=== PATIENT | male | born 1995 | race African-American/Black ===

== ENCOUNTER 2018-08-06 21:55 | Emergency (ER) | payer OTHER ==
[~2018-08-06] VITALS: Ht 180.3 cm; Wt 70.5 kg
[2018-08-06] MEDS ORDERED: SODIUM CHLORIDE 0.9% 1,000 ML IV ONE (22:01)
[2018-08-06] MEDS ORDERED: ONDANSETRON 2MG/ML, 2ML ONE (22:09)
[2018-08-06] MEDS ORDERED: LORazepam 2 MG/ML, 1ML ONE (22:09)
--- NOTE | 2018-08-06 22:19 | NUR ---
PT BIB WITH VOMITING, CHILLS AND AGITATION. PT IS COOPERATIVE, FATHER WITH PT. PT IN HOSPITAL GOWN. IV ESTABLISHED BY [facility]. ORDERED MEDS AND FLUIDS INFUSING. PT ON CARDIAC AND VITALS MONITORS. LABS HAVE BEEN DRAWN. PT IS CALMING DOWN. PT PROVIDED WITH WARM BLANKET. WILL CONTINUE TO MONITOR. BILAT BEDRAILS UP.
[2018-08-06 22:25] LABS: ALANINE AMINOTRANSFERASE 27 U/L (12-78); ALBUMIN 4.3 g/dL (3.4-5.0); ANION GAP 14 mmol/L (5-15); CALCIUM 8.8 mg/dL (8.5-10.1); CHLORIDE 110 mmol/L (98-107); CREATININE 1.04 mg/dL (0.7-1.3)
[2018-08-06 22:27] LABS: ALKALINE PHOSPHATASE 56 U/L (45-117); BILIRUBIN,TOTAL 0.4 mg/dL (0.2-1.0); TOTAL PROTEIN 7.7 g/dL (6.4-8.2)
[2018-08-06] MEDS ORDERED: SODIUM CHLORIDE 0.9% 1,000ML IVBOLUS ONE (22:30)
[2018-08-06] MEDS ORDERED: SODIUM CHLORIDE FLUSH 10ML SYR IVF ONE (22:30)
[2018-08-06] MEDS ORDERED: ONDANSETRON 2MG/ML, 2ML IVPush ONE (22:30)
[2018-08-06] MEDS ORDERED: LORazepam 2 MG/ML, 1ML IVPush ONE (22:30)
[2018-08-06 22:37] LABS: BASOPHILS # (AUTO) 0.04 x10^3/uL (0-0.1); BASOPHILS % (AUTO) 0 % (0-1); EOSINOPHILS # (AUTO) 0.07 x10^3/uL (0-0.4); EOSINOPHILS % (AUTO) 1 % (1-7); LYMPHOCYTES # (AUTO) 2.97 x10^3/uL (1-3.4); LYMPHOCYTES % (AUTO) 29 % (22-44); MD NO; MEAN CORPUSCULAR HGB CONC 33.7 g/dL (33.2-36.2); MEAN CORPUSCULAR VOLUME 92.1 fL (81-97); MEAN PLATELET VOLUME 7.8 fL (7.4-10.4); MONOCYTES # (AUTO) 0.46 x10^3/uL (0.2-0.8); MONOCYTES % (AUTO) 5 % (2-9); NEUTROPHILS # (AUTO) 6.59 x10^3/uL (1.8-6.8); NEUTROPHILS % (AUTO) 65 % (42-75); PLATELET COUNT 270 x10^3/uL (130-400); RED BLOOD COUNT 4.38 x10^6/uL (4.38-5.82); RED CELL DISTRIBUTION WIDTH 13.9 % (9.4-14.8)
--- NOTE | 2018-08-06 23:08 | NUR ---
PT RESTING IN BED CALMLY, FATHER REMAINS AT BEDSIDE. PT VSS. ORDERED FLUIDS CONTINUE TO INFUSE. WILL CONTINUE TO MONITOR.
--- NOTE | 2018-08-06 23:28 | NUR ---
pt resting calmly in bed. Pt father very upset that pt arm is limited in movement due to positional iv. pt father stated, "This is ridiculous, I know I can get better care in [place]. I going to take him back to [place]". pt is in agreement with his father's decision. erp aware. Pt father stated he is going to the hotel and will be back.
[2018-08-06 23:52] VITALS: BP 125/80
--- NOTE | 2018-08-06 23:54 | NUR ---
pt father reviewed AMA form, terms of ama reviewed with pt. pt father signed AMA form. pt able to dress himself with minimal assist. pt gait steady. pt father driving pt home.
== END 2018-08-06 23:55 | disposition home or self-care (01) ==
LOC: ED 23:50
DX: E86.0 Dehydration (principal)
CPT/HCPCS: 36415; 80053; 85025; 96361; 96374; 96375; 99283; J2060; J2405; J7030